=== PATIENT | male | born 1945 | race Caucasian/White ===

== ENCOUNTER 2016-06-15 08:00 | Outpatient (CLI) | payer MEDICARE, OTHER | END 2016-06-15 23:59 | DX: I10 Essential (primary) hypertension (principal); E78.2 Mixed hyperlipidemia; Z79.899 Other long term (current) drug therapy ==

== ENCOUNTER 2017-09-13 08:55 | Outpatient (CLI) | payer MEDICARE, OTHER ==
[2017-09-13 09:10] LABS: BASOPHILS # (AUTO) 0.1 10^3/uL (0.0-0.1); BASOPHILS % (AUTO) 1.2 %; EOSINOPHILS # (AUTO) 0.1 10^3/uL (0.0-0.7); HGB - HEMOGLOBIN 14.3 g/dL (14.0-18.0); LYMPHOCYTES # (AUTO) 1.9 10^3/uL (1.5-3.5); LYMPHOCYTES % (AUTO) 38.8 %; MEAN CORPUSCULAR HEMOGLOBIN 28.3 pg (27.0-31.0); MEAN CORPUSCULAR HGB CONC 33.3 g/dL (32.0-36.0); MEAN PLATELET VOLUME 7.6 fL (7.4-11.4); MONOCYTES # (AUTO) 0.7 10^3/uL (0.0-1.0); MONOCYTES % (AUTO) 13.4 %; NEUTROPHILS # (AUTO) 2.2 10^3/uL (1.5-6.6); NEUTROPHILS % (AUTO) 44.6 %; PLT - PLATELET COUNT 216 10^3/uL (130-450); RED BLOOD COUNT 5.06 10^6/uL (4.70-6.10); RED CELL DISTRIBUTION WIDTH 13.5 % (12.0-15.0)
[2017-09-13 09:28] LABS: ALBUMIN/GLOBULIN RATIO 1.1 (1.0-2.2); ALKALINE PHOSPHATASE 61 IU/L (42-121); ALT ALANINE AMINOTRANSFERASE 26 IU/L (10-60); AST ASPARTATE AMINOTRANSFERASE 20 IU/L (10-42); BILIRUBIN,TOTAL 0.8 mg/dL (0.2-1.0); BUN - BLOOD UREA NITROGEN 17 mg/dL (6-20); CALCIUM 8.8 mg/dL (8.5-10.3); CARBON DIOXIDE - CO2 31 mmol/L (21-32); CHLORIDE 97 mmol/L (101-111); CHOL/HDL RATIO 4.8 (<5.0); CHOLESTEROL 196 mg/dL; CREATININE 0.8 mg/dL (0.6-1.2); GFR - MDRD 96 (>89); GLUCOSE 108 mg/dL (70-100); HDL CHOLESTEROL 41 mg/dL; LDL CHOLESTEROL,CALCULATED 125 mg/dL; SODIUM 134 mmol/L (135-145); TOTAL PROTEIN 7.8 g/dL (6.7-8.2); VLDL CHOLESTEROL 30 mg/dL
[2017-09-13 09:57] LABS: HB2 TOTAL 16.1 g/dL; HEMOGLOBIN A1C 0.62 g/dL; HEMOGLOBIN A1C % 5.7 % (4.6-6.2)
== END 2017-09-13 08:56 | disposition home or self-care (01) ==
LOC: LAB 08:55
PROVIDERS: ATTEND Internal Medicine
DX: R73.9 Hyperglycemia, unspecified (principal); E78.5 Hyperlipidemia, unspecified; I10 Essential (primary) hypertension
CPT/HCPCS: 36415; 80053; 80061; 83036; 83721; 85025

== ENCOUNTER 2017-09-29 12:37 | Outpatient (CLI) | payer MEDICARE, OTHER ==
--- NOTE | 2017-09-29 14:38 | XRAY Report ---
Procedure Date: 09/29/2017 Accession Number: [id number] / [id number] Procedure: XR - Ankle 3 View RT CPT Code: FULL RESULT: EXAM: Ankle 3 View RT DATE: 09/29/2017 1:34 PM CLINICAL HISTORY: CHRONIC PAIN IN R ANKLE COMPARISON: None. TECHNIQUE: 3 views. FINDINGS: Bones: Plantar and posterior calcaneal spurs. Minor degenerative changes medial malleolus. No fractures or bone lesions. Joints: No tibiotalar joint effusion. No subluxations. Soft Tissues: No soft tissue swelling. IMPRESSION: Minor degenerative changes right ankle without superimposed acute findings. [facility]
== END 2017-09-29 12:38 | disposition home or self-care (01) ==
LOC: DI 12:37
PROVIDERS: ATTEND Podiatrist
DX: M19.071 Primary osteoarthritis, right ankle and foot (principal)

== ENCOUNTER 2017-12-05 08:00 | Outpatient (CLI) | payer MEDICARE, OTHER ==
[2017-12-05 14:46] LABS: CALCIUM 8.8 mg/dL (8.5-10.3); CREATININE 0.8 mg/dL (0.6-1.2)
== END 2017-12-05 08:01 | disposition home or self-care (01) ==
LOC: LAB.R 08:00
PROVIDERS: ATTEND Internal Medicine
DX: I10 Essential (primary) hypertension (principal)
CPT/HCPCS: 80048

== ENCOUNTER 2017-12-14 12:17 | Day surgery (SDC) | payer MEDICARE, OTHER ==
[2017-12-14] MEDS ORDERED: LACTATED RINGERS 1,000 ML IV ONE (12:44)
[2017-12-14] MEDS ORDERED: fentaNYL 250 MCG/5 ML VIAL IVP ONE (15:05)
[2017-12-14] MEDS ORDERED: MIDAZOLAM 2 MG/2 ML VIAL IVP ONE (15:05)
[2017-12-14 16:23] VITALS: BP 138/59
== END 2017-12-14 12:18 | disposition home or self-care (01) ==
LOC: SDS 12:17
PROVIDERS: ATTEND Internal Medicine Gastroenterology
PROC: 0DBP8ZZ Excision of Rectum, Via Natural or Artificial Opening Endoscopic (ICD-10-PCS; 2017-12-14)
PROC: 0DBK8ZZ Excision of Ascending Colon, Via Natural or Artificial Opening Endoscopic (ICD-10-PCS; principal; 2017-12-14 13:30)
DX: Z12.11 Encounter for screening for malignant neoplasm of colon (principal); D12.2 Benign neoplasm of ascending colon; D12.8 Benign neoplasm of rectum; K57.30 Diverticulosis of large intestine without perforation or abscess without bleeding; I10 Essential (primary) hypertension; E66.9 Obesity, unspecified; Z68.38 Body mass index [BMI] 38.0-38.9, adult; Z79.899 Other long term (current) drug therapy
CPT/HCPCS: 45380; J3010; J7120

== ENCOUNTER 2018-02-23 12:12 | Outpatient (CLI) | payer MEDICARE, OTHER ==
--- NOTE | 2018-02-24 11:04 | MRI Report ---
Reason: TENDINOPATHY OF RIGHT ROTATOR CUFF Procedure Date: 02/23/2018 Accession Number: [id number] / [id number] Procedure: MRI - Shoulder RT W/O CPT Code: FULL RESULT: EXAM: RIGHT SHOULDER MRI WITHOUT CONTRAST EXAM DATE: 02/23/2018 01:24 PM. CLINICAL HISTORY: Tendinopathy of right rotator cuff. COMPARISON: None. TECHNIQUE: Multiplanar, multisequence T1-weighted and fluid-sensitive sequences of the shoulder without contrast. Other: None. FINDINGS: Acromioclavicular Region: Probable previous acromioplasty. Small acromioclavicular joint effusion. Glenohumeral Region: No subluxation. Small joint effusion. Mild cartilage thinning. The glenohumeral ligaments and joint capsule are unremarkable. Bone Marrow: No fracture, marrow edema or bone lesions. Labrum: The labrum is unremarkable on this nonarthrographic study. Musculature/Rotator Cuff: Punctate 0.3 cm 50-75% partial thickness tear distal infraspinatus at the humeral attachment. Mild T2 hyperintensity of the distal supraspinatus and infraspinatus tendons, tendinosis. Subscapularis and teres minor appear normal. Biceps Tendon: The long head of the biceps tendon and biceps [place] are intact. Other: The subcutaneous tissues are unremarkable. IMPRESSION: 1. Punctate 50-75% tear measures 0.3 cm at the attachment of the distal infraspinatus. 2. Mild distal supraspinatus and infraspinatus tendinosis. 3. Probable previous acromioplasty or distal clavicle resection with widening of the AC joint space. [facility] MUSCULOSKELETAL RADIOLOGY SECTION
== END 2018-02-23 12:13 | disposition home or self-care (01) ==
LOC: DI 12:12
PROVIDERS: ATTEND Orthopaedic Surgery
DX: M75.101 Unspecified rotator cuff tear or rupture of right shoulder, not specified as traumatic (principal); M67.911 Unspecified disorder of synovium and tendon, right shoulder

== ENCOUNTER 2019-10-29 10:00 | Outpatient (CLI) | payer MEDICARE, OTHER | END 2019-10-29 23:59 | disposition home or self-care (01) | LOC: COV 10:00 | PROVIDERS: ATTEND Family Medicine | DX: Z01.812 Encounter for preprocedural laboratory examination (principal); Z20.828 Contact with and (suspected) exposure to other viral communicable diseases ==

== ENCOUNTER 2021-08-04 14:56 | Outpatient (CLI) | payer MEDICARE, OTHER | END 2021-08-04 14:57 | disposition critical access hospital (66) | LOC: EMS 14:56 | DX: M25.552 Pain in left hip (principal); W11.XXXA Fall on and from ladder, initial encounter; Y92.009 Unspecified place in unspecified non-institutional (private) residence as the place of occurrence of the external cause | CPT/HCPCS: A0425; A0429 ==

== ENCOUNTER 2021-08-04 15:06 | Emergency (ER) | payer MEDICARE, OTHER ==
--- NOTE | 2021-08-04 15:38 | ED Physician Documentation ---
History of Present Illness - Stated complaint Stated Complaint: LFT HIP PX - Chief complaint Chief Complaint: Trauma Ext - History obtained from History obtained from: Patient - Additonal information Additional information: The patient is brought to the emergency department by EMS for chief complaint of fall from ladder with left hip pain right hand pain and mid back pain. Patient states he was on a ladder which was sitting on a gravel surface and was several rungs up, cleaning his RV when he lost his balance and fell. He states the ladder tipped over and he fell onto the ladder with his left hip. He also tried to catch himself with his right hand and complains of some pain over the thenar eminence. Patient states initially his back did not hurt but that he has been noticing increasingly some pain which he indicates is in the lower T-spine area. Patient states the incident happened roughly an hour ago. A neighbor from across the street came and helped him up and the patient was actually able to ambulate into the house, though he was limping. He also ambulated out from the house to the gurney when the medics arrived. Patient states he has some numbness over the hip itself but denies any numbness, tingling, or weakness in his left foot and ankle. Patient states he did not hit his head during the fall. No other complaints at this time. Review of Systems Ten Systems: 10 systems reviewed and negative Constitutional: reports: Reviewed and negative Eyes: reports: Reviewed and negative Ears: reports: Reviewed and negative Nose: reports: Reviewed and negative Throat: reports: Reviewed and negative Cardiac: reports: Reviewed and negative Respiratory: reports: Reviewed and negative GI: reports: Reviewed and negative : reports: Reviewed and negative Skin: reports: Reviewed and negative Musculoskeletal: reports: Back pain, Extremity pain, Joint pain Neurologic: reports: Reviewed and negative Psychiatric: reports: Reviewed and negative Endocrine: reports: Reviewed and negative Immunocompromised: reports: Reviewed and negative PD PAST MEDICAL HISTORY - Present Medications Home Medications: Ambulatory Orders Medication Instructions Recorded Confirmed Losartan Potassium [Cozaar] 100 mg PO DAILY 12/13/17 08/04/21 Multivitamin [Multiple Vitamins] 1 each PO DAILY 12/13/17 08/04/21 HYDROcod/ACETAM 5/325 [[place] 5/325] 1 tablet PO Q6H PRN #14 tablet 08/04/21 Rosuvastatin Calcium [Crestor] 10 mg PO DAILY 08/04/21 08/04/21 - Allergies Allergies/Adverse Reactions: Allergies Allergy/AdvReac Type Severity Reaction Status Date / Time sulfamethoxazole Allergy Unknown Verified 12/13/17 13:28 [From Bactrim] trimethoprim [From Bactrim] Allergy Unknown Verified 12/13/17 13:28 PD ED PE NORMAL - Vitals Vital signs reviewed: Yes - General General: Alert and oriented X 3, No acute distress, Well developed/nourished, Other - HEENT HEENT: Atraumatic, PERRL, EOMI, Moist mucous membranes - Neck Neck: Supple, no meningeal sign, No bony TTP - Cardiac Cardiac: RRR, No murmur, Strong equal pulses - Respiratory Respiratory: No respiratory distress, Clear bilaterally - Abdomen Abdomen: Soft, Non tender, Non distended - Back Back: No CVA TTP, Other (Tenderness palpation over the T11-12 level.) - Derm Derm: Normal color, Warm and dry, No rash, Other (Approximately 40 cm linear abrasion over left hip. No laceration foreign body. Mild associated contusion superior aspect.) - Extremities Extremities: No deformity, No edema, No calf tenderness / cord, Other (Tenderness palpation over left iliac wing. No deformity. Moderately limited flexion of left hip, secondary to pain. Tenderness right thenar eminence. 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, No motor deficit, No sensory deficit, Normal speech - Psych Psych: Normal mood, Normal affect Results - Vitals Vitals: Oxygen O2 Source Room air - Rads (name of study) X-ray left hip and pelvis Radiology: Final report received, EMP read indepedently, See rad report (Negative) Right hand x-ray Radiology: Final report received, EMP read indepedently, See rad report (Negative) Thoracic spine x-ray series Radiology: Final report received, EMP read indepedently, See rad report (Negative) PD MEDICAL DECISION MAKING - ED course Complexity details: reviewed results, re-evaluated patient, considered differential, d/w patient ED course: Patient was worked up with x-rays of the left hip and pelvis, right hand, and T- spine, all of which were unremarkable. We have discussed symptomatic management at home as well as the usual indications for return. Departure - Departure Disposition: 01 Home, Self Care Clinical Impression: Contusion, hip Qualifiers: Encounter type: initial encounter Laterality: left Qualified Code(s): S70.02XA - Contusion of left hip, initial encounter Low back strain Qualifiers: Encounter type: initial encounter Qualified Code(s): S39.012A - Strain of muscle, fascia and tendon of lower back, initial encounter Hand contusion Qualifiers: Encounter type: initial encounter Laterality: right Qualified Code(s): S60.221A - Contusion of right hand, initial encounter Fall from ladder Qualifiers: Encounter type: initial encounter Qualified Code(s): W11.XXXA - Fall on and from ladder, initial encounter Condition: Stable Instructions: ED Low Back Pain Injury Prescriptions: HYDROcod/ACETAM 5/325 [[place] 5/325] 1 tablet PO Q6H PRN #14 tablet PRN Reason: Pain Comments: All of your x-rays are negative. You have bruised your hip and your hand and strained your back. Please take the medication prescribed for pain. There is no evidence of a significant head injury or any broken bones. Your prescription has been electronically transmitted to [facility] pharmacy in [place]. Discharge Date/Time: 08/04/21 17:34
[2021-08-04] MEDS ORDERED: HYDROmorphone 1 MG/ML CARPUJECT IM STA (16:26)
[2021-08-04] MEDS ORDERED: KETOROLAC 60 MG/2 ML VIAL IM STA (16:26)
[2021-08-04 17:30] VITALS: BP 108/78
== END 2021-08-04 17:34 | disposition home or self-care (01) ==
LOC: EDUNIT# → ED 15:06
DX: S70.02XA Contusion of left hip, initial encounter (principal); S60.221A Contusion of right hand, initial encounter; S39.012A Strain of muscle, fascia and tendon of lower back, initial encounter; W11.XXXA Fall on and from ladder, initial encounter
CPT/HCPCS: 72070; 73130; 73502; 96372; 99283; 99284; J1170

== ENCOUNTER 2022-07-16 20:20 | Emergency (ER) | payer MEDICARE, OTHER ==
[2022-07-16 20:48] LABS: BASOPHILS % (AUTO) 0.7 %; EOSINOPHILS # (AUTO) 0.2 10^3/uL (0.0-0.7); EOSINOPHILS % (AUTO) 3.6 %; HCT - HEMATOCRIT 43.1 % (42.0-52.0); HGB - HEMOGLOBIN 14.1 g/dL (14.0-18.0); LYMPHOCYTES # (AUTO) 1.7 10^3/uL (1.5-3.5); LYMPHOCYTES % (AUTO) 28.4 %; MEAN CORPUSCULAR HEMOGLOBIN 28.8 pg (27.0-31.0); MEAN CORPUSCULAR HGB CONC 32.7 g/dL (32.0-36.0); MEAN CORPUSCULAR VOLUME 88.1 fL (80.0-94.0); MEAN PLATELET VOLUME 9.8 fL (7.4-11.4); MONOCYTES % (AUTO) 16.4 %; NEUTROPHILS # (AUTO) 2.9 10^3/uL (1.5-6.6); NEUTROPHILS % (AUTO) 50.7 %; PLT - PLATELET COUNT 203 10^3/uL (130-450); RED BLOOD COUNT 4.89 10^6/uL (4.70-6.10); RED CELL DISTRIBUTION WIDTH 13.2 % (12.0-15.0); WHITE BLOOD COUNT 5.8 x10^3/uL (4.8-10.8)
[2022-07-16] MEDS ORDERED: ASPIRIN CHEW 81 MG TABLET PO STA (20:49)
[2022-07-16] MEDS ORDERED: KETOROLAC 30 MG/ML VIAL IVP STA (20:49)
--- NOTE | 2022-07-16 20:52 | ED Physician Documentation ---
PD HPI CHEST PAIN - Stated complaint Stated Complaint: CHEST PX/THROAT/NECK NUMB - Chief complaint Chief Complaint: Cardiac - History obtained from History obtained from: Patient - History of Present Illness Timing - onset: How many days ago (2) Quality: Aching, Pain Location: Left chest Radiation: No: Jaw, Neck, Back, Abdominal, Left upper extremity, Right upper extremity Improved by: Rest Worsened by: Movement, Palpation Associated symptoms: No: Shortness of air, Diaphoresis, Nausea, Vomiting, Feeling faint / dizzy, General Weakness, Palpitations, Cough - Additional information Additional information: Patient is a 77-year-old male who presents to the emergency department with left upper chest wall pain. Started yesterday. He states it feels like somebody punched him in the chest. Worse with palpation and movement, better with rest. Took Advil without relief. Patient denies any history of acute coronary syndrome. No history of stents or bypasses. No fevers. No chills. He has had a cough for the past week. Review of Systems Constitutional: denies: Fever, Chills Respiratory: denies: Cough GI: denies: Nausea, Vomiting, Diarrhea Skin: denies: Rash Musculoskeletal: denies: Neck pain, Back pain Neurologic: denies: Headache PD PAST MEDICAL HISTORY - Past Medical History Past Medical History: Yes Cardiovascular: Hypertension - Allergies Allergies/Adverse Reactions: Allergies Allergy/AdvReac Type Severity Reaction Status Date / Time sulfamethoxazole Allergy Hives Verified 07/16/22 21:01 [From Bactrim] trimethoprim [From Bactrim] Allergy Hives Verified 07/16/22 21:01 - Living Situation Living Situation: reports: With family Living Arrangement: reports: At home - Social History Does the pt smoke?: No Does the pt have substance abuse?: No - Family History Family history: reports: Non contributory PD ED PE NORMAL - Vitals Vital signs reviewed: Yes - General General: Alert and oriented X 3, No acute distress - HEENT HEENT: Moist mucous membranes - Neck Neck: Supple, no meningeal sign, No JVD, No bruit - Cardiac Cardiac: RRR, Strong equal pulses - Respiratory Respiratory: No respiratory distress, Clear bilaterally - Abdomen Abdomen: Soft, Non tender, Non distended - Derm Derm: Warm and dry - Extremities Extremities: No edema, No calf tenderness / cord - Neuro Neuro: Alert and oriented X 3 - Free text exam Free text exam: Tender to palpation over the left anterior chest wall, approximately ribs 3 through 5, over the costochondral cartilage. Reproduces his pain. No crepitus. Results - Vitals Vitals: Vital Signs - 24 hr 07/16/22 07/16/22 07/16/22 20:25 20:36 21:06 Temperature 36.7 C Heart Rate 88 84 87 Respiratory 17 17 16 Rate Blood Pressure 184/82 H 179/96 H 150/88 H O2 Saturation 97 99 94 Oxygen O2 Source Room air - EKG (time done) 2030 EKG releavant findings:: EKG personally interpreted by author of this note. Relevant findings are: Rate: Rate (enter#) (80) Rhythm: NSR Branch: Anterior hemiblock (LAFB) Intervals: Prolonged [place] QRS: Normal Ischemia: Normal ST segments - Labs Labs: Laboratory Tests 07/16/22 07/16/22 07/16/22 20:37 20:37 20:37 WBC 5.8 RBC 4.89 Hgb 14.1 Hct 43.1 MCV 88.1 MCH 28.8 MCHC 32.7 RDW 13.2 Plt Count 203 MPV 9.8 Neut # (Auto) 2.9 Lymph # (Auto) 1.7 [place] # (Auto) 1.0 Eos # (Auto) 0.2 Baso # (Auto) 0.0 Absolute Nucleated RBC 0.00 Nucleated RBC % 0.0 Sodium 137 Potassium 3.5 Chloride 100 L Carbon Dioxide 29 Anion Gap 8.0 BUN 17 Creatinine 0.8 Estimated GFR (MDRD) 94 Glucose 184 H Calcium 9.0 Total Bilirubin 0.4 AST 27 ALT 35 Alkaline Phosphatase 51 Troponin I High Sens 5.3 Total Protein 7.4 Albumin 3.9 Globulin 3.5 Albumin/Globulin Ratio 1.1 Lipase 33 - Rads (name of study) cxr Relevant Findings:: Final report received, See rad report PD Medical Decision Making - ED course Complexity details: reviewed results, re-evaluated patient, considered differential (No ST elevation [place], no aortic dissection, no PE, no tension pneumothorax, no aortic aneurysm), d/w patient Reviewed Lab Results: CBC, ER abdominal panel and high-sensitivity troponin are negative other than a glucose of 184 ED course: Patient is a 77-year-old male who presents to the emergency department left anterior chest wall pain since yesterday. He states it feels like he was punched in the chest. 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 No acute findings on chest x-ray, EKG or laboratory testing. Negative high-sensitivity troponin. Pain feels much better after Toradol. No evidence of PE. Likely costochon dritis following his viral illness. He has had a mild cough for the past 2 weeks. We will continue supportive care and follow-up with his doctor for a cardiac stress test and further care. Patient counseled regarding signs and symptoms for which I believe and urgent re-evaluation would be necessary. Patient with good understanding of and agreement to plan and is comfortable going home at this time This document was made in part using voice recognition software. While efforts are made to proofread this document, sound alike and grammatical errors may occur. Departure - Departure Disposition: 01 Home, Self Care Clinical Impression: Chest wall pain, Costochondritis, acute Condition: Good Instructions: ED Chest Pain Costochondritis Follow-Up: your,doctor in 1 week [Other] Comments: Please follow-up with your doctor for further care. I would continue Motrin or Aleve for the next several days. You should have a cardiac stress test with your doctor. There is no evidence of acute heart attack today. There are no significant abnormalities on your laboratory testing or x-ray either. Please return if you worsen.
[2022-07-16 21:03] LABS: ALBUMIN 3.9 g/dL (3.2-5.5); ALBUMIN/GLOBULIN RATIO 1.1 (1.0-2.2); BILIRUBIN,TOTAL 0.4 mg/dL (0.2-1.0); CREATININE 0.8 mg/dL (0.6-1.2); POTASSIUM 3.5 mmol/L (3.5-5.0); TOTAL PROTEIN 7.4 g/dL (6.7-8.2)
--- NOTE | 2022-07-16 21:27 | XRAY Report ---
PROCEDURE: Chest 1 View X-Ray INDICATIONS: Chest pain TECHNIQUE: One view of the chest was acquired. COMPARISON: None. FINDINGS: Surgical changes and devices: None. Lungs and pleura: No pleural effusions or pneumothorax. Lungs are clear considering reduced inspira tory volume. Mediastinum: Mediastinal contours appear normal. Heart size is normal. Bones and chest wall: No suspicious bony lesions. Overlying soft tissues appear unremarkable. IMPRESSION: Large body habitus, reduced inspiratory volume, no acute disease suspected when this is taken into ac count. Reviewed by: Carlos Castanon MD on 07/16/2022 9:26 PM PDT Approved by: Carlos Castanon MD on 07/16/2022 9:26 PM PDT Station ID: [id number]
[2022-07-16 21:40] VITALS: BP 158/79
== END 2022-07-16 21:39 | disposition home or self-care (01) ==
LOC: MERGE 20:20 → ED 20:20
DX: M94.0 Chondrocostal junction syndrome [Tietze] (principal)
CPT/HCPCS: 36415; 71045; 80053; 83690; 84484; 85025; 93005; 96374; 99283; 99284; A9270

== ENCOUNTER 2022-08-03 10:08 | Outpatient (CLI) | payer MEDICARE, OTHER ==
[2022-08-03 10:26] LABS: HCT - HEMATOCRIT 43.5 % (42.0-52.0); HGB - HEMOGLOBIN 13.9 g/dL (14.0-18.0); MEAN CORPUSCULAR HEMOGLOBIN 28.3 pg (27.0-31.0); MEAN CORPUSCULAR VOLUME 88.4 fL (80.0-94.0); MEAN PLATELET VOLUME 9.5 fL (7.4-11.4); RED BLOOD COUNT 4.92 10^6/uL (4.70-6.10); RED CELL DISTRIBUTION WIDTH 13.4 % (12.0-15.0); WHITE BLOOD COUNT 5.2 x10^3/uL (4.8-10.8)
[2022-08-03 10:42] LABS: ALBUMIN 3.9 g/dL (3.2-5.5); ALKALINE PHOSPHATASE 55 IU/L (42-121); ALT ALANINE AMINOTRANSFERASE 28 IU/L (10-60); AST ASPARTATE AMINOTRANSFERASE 16 IU/L (10-42); BILIRUBIN,TOTAL 0.5 mg/dL (0.2-1.0); BUN - BLOOD UREA NITROGEN 18 mg/dL (6-20); CALCIUM 8.8 mg/dL (8.5-10.3); CARBON DIOXIDE - CO2 31 mmol/L (21-32); CHLORIDE 100 mmol/L (101-111); CHOL/HDL RATIO 2.9 (<5.0); CHOLESTEROL 136 mg/dL; CREATININE 0.8 mg/dL (0.6-1.2); GFR - MDRD 94 (>89); GLUCOSE 144 mg/dL (70-100); HDL CHOLESTEROL 47 mg/dL; LDL CHOLESTEROL,CALCULATED 65 mg/dL; LDL/HDL RATIO 1.4 (<3.6); POTASSIUM 4.1 mmol/L (3.5-5.0); SODIUM 139 mmol/L (135-145); TOTAL PROTEIN 7.7 g/dL (6.7-8.2); TRIGLYCERIDES 121 mg/dL; VLDL CHOLESTEROL 24 mg/dL
[2022-08-03 10:53] LABS: THYROID STIMULATING HORMONE 2.46 uIU/mL (0.34-5.60)
[2022-08-03 12:33] LABS: ESTIMATED AVERAGE GLUCOSE 146 mg/dL (70-100); HEMOGLOBIN A1c% 6.7 % (4.27-6.07)
== END 2022-08-03 10:09 | disposition home or self-care (01) ==
LOC: LAB 10:08
PROVIDERS: ATTEND Internal Medicine
DX: I10 Essential (primary) hypertension (principal); E78.2 Mixed hyperlipidemia; R73.09 Other abnormal glucose
CPT/HCPCS: 36415; 80053; 80061; 83036; 83721; 84153; 84443; 85027